=== PATIENT | female | born 1945 | race Caucasian/White ===

== ENCOUNTER → 2018-07-21 | Outpatient (CLI) | payer MEDICARE, OTHER | END | disposition home or self-care (01) | LOC: RAH 08:31 | PROVIDERS: ATTEND Family Medicine | DX: Z12.31 Encounter for screening mammogram for malignant neoplasm of breast (principal) | CPT/HCPCS: 77067 ==

== ENCOUNTER → 2021-02-27 | Outpatient (CLI) | payer MEDICARE ==
[~2021-02-27] MED LIST: AMLO-257 PO; ASPI-1197 PO; BENA10TA77 PO; FOLIC PO; KRIL1CAP29 PO; LEVO50TA11 PO
== END | disposition home or self-care (01) ==
LOC: RAH 14:55
PROVIDERS: ATTEND Family Medicine
DX: Z12.31 Encounter for screening mammogram for malignant neoplasm of breast (principal)
CPT/HCPCS: 77067

== ENCOUNTER → 2022-09-24 | Outpatient (CLI) | payer MEDICARE ==
[~2022-09-24] MED LIST changes: +ACET-2079 PO; +DOCU-116 PO
== END | disposition home or self-care (01) ==
LOC: RAH 09:22
PROVIDERS: ATTEND Internal Medicine
DX: K44.9 Diaphragmatic hernia without obstruction or gangrene (principal); K21.9 Gastro-esophageal reflux disease without esophagitis; K31.89 Other diseases of stomach and duodenum; Z90.49 Acquired absence of other specified parts of digestive tract
CPT/HCPCS: 74240

== ENCOUNTER → 2022-12-14 | Outpatient (CLI) | payer MEDICARE | END | disposition home or self-care (01) | LOC: RAH 08:29 | PROVIDERS: ATTEND Family Medicine | DX: Z12.31 Encounter for screening mammogram for malignant neoplasm of breast (principal) | CPT/HCPCS: 77067 ==

== ENCOUNTER → 2023-12-24 | Outpatient (CLI) | payer MEDICARE | END | disposition home or self-care (01) | LOC: RAH 10:37 | PROVIDERS: ATTEND Family Medicine | DX: Z12.31 Encounter for screening mammogram for malignant neoplasm of breast (principal) | CPT/HCPCS: 77067 ==

== ENCOUNTER → 2025-05-04 | Outpatient (CLI) | payer MEDICARE ==
--- NOTE | 2025-05-05 08:26 | HMCIMG ---
EXAM: CR bone survey. CLINICAL HISTORY: Monoclonal gammopathy. COMPARISON: None provided. FINDINGS: Skull: No acute fracture or aggressively appearing osseous lesion. The paranasal sinuses are grossly clear. Unremarkable soft tissues. Cervical spine: Cervical alignment is within normal limits. Degenerative changes in the cervical spine at C4-C5, C5-C6, and C6-C7 levels with an anterior osteophyte and multilevel uncinate process hypertrophy. Normal vertebral body heights. No acute fracture. The prevertebral soft tissues are within normal limits. Thoracic spine: Thoracic alignment is within normal limits. Mild degenerative reduction in disc space in the lower thoracic spine with lateral syndesmophyte and facet arthropathy.. Normal vertebral body heights. No acute fracture. Soft tissues are within normal limits. Lumbar spine: Lumbar alignment is within normal limits. Mild degenerative reduction in disc space at the L5-S1 level. Multilevel degenerative facet arthropathy from L3-L4, through L5-S1 level. Mild osteopenia. Normal vertebral body heights. No acute fracture. Soft tissues are within normal limits. Chest: The lungs show no infiltrate or other acute finding. Subsegmental atelectasis in the lingula and a linear fibrotic band in the left lower lobe. No pleural effusion or pneumothorax. The cardiomediastinal silhouette is within normal limits. No acute osseous abnormality. Bilateral humeri: No acute fracture or aggressively appearing osseous lesion. Moderate degenerative changes in the bilateral acromioclavicular joints, right more than left. The soft tissues are unremarkable. Bilateral forearm bones: No evidence of acute fracture or aggressive appearing lesion. Mild degenerative changes in the bilateral radiocarpal and intercarpal joints. Pelvis: No acute fracture or aggressive appearing osseous lesion. Joint spaces are within normal limits. The soft tissues are unremarkable. Bilateral hips: No acute fracture or aggressively appearing osseous lesion. Joint spaces are within normal limits. The soft tissues are unremarkable. Bilateral femurs: No acute fracture or aggressively appearing osseous lesion. Joint spaces are within normal limits. The soft tissues are unremarkable. Bilateral tibia-fibula: No acute fracture or focal osseous lesion. IMPRESSION: No acute bony abnormality or aggressive osseous lesion is evident. No destructive bony pathology is identified in the bilateral right radius and ulna, bilateral femur, or tibia-fibula. Degenerative changes in the cervical spine, lower thoracic spine, and lumbar spine. Mild degenerative changes in the bilateral radiocarpal and intercarpal joints. /[place]ock
== END | disposition home or self-care (01) ==
LOC: RAH 09:51
PROVIDERS: ATTEND Internal Medicine
DX: M19.011 Primary osteoarthritis, right shoulder (principal); M19.041 Primary osteoarthritis, right hand; M19.042 Primary osteoarthritis, left hand; D47.2 Monoclonal gammopathy; M47.812 Spondylosis without myelopathy or radiculopathy, cervical region; M25.78 Osteophyte, vertebrae; M47.814 Spondylosis without myelopathy or radiculopathy, thoracic region; M47.817 Spondylosis without myelopathy or radiculopathy, lumbosacral region; M85.88 Other specified disorders of bone density and structure, other site
CPT/HCPCS: 77075